=== PATIENT | male | born 1990 | race African-American/Black ===

== ENCOUNTER 2023-02-13 22:21 | Emergency (ER) | payer OTHER ==
[~2023-02-13] VITALS: Ht 188 cm; Wt 90.7 kg
[2023-02-13 22:28] VITALS: BP 140/80
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
--- NOTE | 2023-02-13 22:40 | NUR ---
[place] DOBBINS speaking to patient by bedside
--- NOTE | 2023-02-13 22:48 | NUR ---
Family by bedside.
--- NOTE | 2023-02-13 22:50 | NUR ---
ERMD evaluating patient at this time
[2023-02-13] MEDS ORDERED: LORazepam 1 MG TAB PO ONE (23:00)
[2023-02-14 00:22] VITALS: BP 132/80
--- NOTE | 2023-02-14 00:22 | NUR ---
Patient discharged with v/s stable. Accompanied by [place] DOBBINS. Written and verbal after care instructions given and explained. Patient verbalized understanding. Ambulatory with steady gait. All questions addressed prior to discharge. Advised to follow up with PMD.
== END 2023-02-14 00:22 ==
LOC: MED 22:21
DX: F41.0 Panic disorder [episodic paroxysmal anxiety] (principal)
CPT/HCPCS: 93005; 99283